=== PATIENT | male | born 2000 | race Caucasian/White ===

== ENCOUNTER 2022-01-27 17:12 | Emergency (ER) | payer OTHER, MEDICAID ==
[2022-01-27] MEDS ORDERED: Lidocaine 1% 5 ML VIAL INFILT ONE (17:13)
== END 2022-01-27 17:53 | disposition home or self-care (01) ==
LOC: FB.ED 17:12
DX: S61.211A Laceration without foreign body of left index finger without damage to nail, initial encounter (principal)
CPT/HCPCS: 12002; 99282